=== PATIENT | male | born 2000 | race Caucasian/White ===

== ENCOUNTER 2022-10-10 08:06 | Emergency (ER) | payer BC, SELFPAY ==
[2022-10-10 08:20] VITALS: BP 138/77; PULSE 118; RESP 21; TEMP 36.8; O2SAT 99; BMI 25.4
--- NOTE | 2022-10-10 08:32 | EXP.UTC ---
Discharge Plan Disposition Patient Disposition: Home, Self-Care Condition: Good Prescriptions Prescriptions: New azithromycin [Zithromax Z-Jamie] 250 mg tablet See Rx Instructions .ROUTE .COMPLEX 5 Days Qty: 6 0RF Rx Instructions: For 250 mg dose pack: take 500 mg today (day 1), then 250 mg for 4 days (days 2-5) methylprednisolone [Medrol (Jamie)] 4 mg tablets,dose pack See Rx Instructions .Route .COMPLEX 6 Days Qty: 21 0RF Rx Instructions: taper pack; No Action venlafaxine 150 mg capsule,extended release 24hr 150 mg PO DAILY Label Comments: TAKE 1 CAPSULE BY MOUTH ONCE DAILY . APPOINTMENT REQUIRED FOR FUTURE REFILLS Referrals Follow up/Referrals: Provider,Referral, MD [Primary Care Provider] - See instructions Activity Restrictions/Add. Instructions Additional Instructions/Restrictions: *Monitor Temp, Over the counter Motrin or Tylenol as directed/as needed Tylenol every 4 hours and Motrin every 6 hours (as long as your family doctor has told you that you can take it) for fever or pain. and straight to ER if unable to lower temp less than 101.0 after medication given *Warm salt water gargles may help to soothe the throat *Throat Lozenges? *Warm fluids like tea with honey may help to soothe the throat? *Sleep elevated *Humidifier/Vaporizer Your throat swab was sent for culture. Those results are typically sent to your primary care. Be sure to follow up in 2-3 days with your family doctor/primary care physician if no improvement so they can review those result and treat if necessary. If you don?t have a primary care doctor, I recommend you get one but in the mean time, you will have to return to a walk in clinic Follow up IMMEDIATELY for new or worsening symptoms or no Noticeable improvement over the next 48-72 hours. 911 for difficulty breathing or swallowing Clinical Impressions Clinical Impression: Pharyngitis Stand Alone Forms Stand Alone Forms: Work/School Release Instructions Patient Instructions: Sore Throat, DI for Sinusitis Discharge ED Provider: Bing Farnsworth [facility] General Stated complaint: Drainage, congestion, headache, sore throat Time Seen by Provider: 10/10/22 08:32 History of Present Illness Provider Complaint: Patient states that he has been having sinus pain and pressure, sore throat, headache, and drainage in the back of his throat States today he was feeling worse so he came in to get checked for strep throat Related Data Home Medications Medication Instructions Recorded Confirmed venlafaxine 150 mg 150 mg PO DAILY Anxiety 10/10/22 10/10/22 capsule,extended release 24 hr Previous Rx's Medication Instructions Recorded azithromycin 250 mg tablet See Rx Instructions PO .COMPLEX 5 10/10/22 (Zithromax Z-Jamie) days #6 tabs methylprednisolone 4 mg tablets in See Rx Instructions .Route 10/10/22 a dose pack (Medrol (Jamie)) .COMPLEX 6 days #21 tabs Allergies Allergy/AdvReac Type Severity Reaction Status Date / Time No Known Allergies Allergy Verified 10/10/22 08:34 [facility] Disclaimer: The information contained in this section may have been updated after the patient was seen, as this information can be updated by other users. Social History Smoking Status: Unknown if ever smoked alcohol intake: never current occupational status: employed Travel in the last 8 weeks: None ROS Obtained: Yes All systems reviewed & no additional complaints except as documented and Yes Systems reviewed as appropriate & no additional complaints except as documented Constitutional Constitutional: Reports system reviewed and no additional complaints, except as documented, Reports as per HPI and Reports headache(s) ENT Ears, Nose, Mouth, and Throat: Reports system reviewed and no additional complaints, except as documented, Reports as per HPI, Reports headache(s), Reports nasal congestion, Reports sinus pressure and Rep
[2022-10-10 08:39] LABS: UTC Strep Screen (Rapid) Negative (Negative)
[2022-10-10 08:45] VITALS: BP 138/77; PULSE 118; RESP 21; TEMP 36.8; O2SAT 99
== END 2022-10-10 08:48 | disposition home or self-care (01) ==
PROVIDERS: Emergency Provider Nurse Practitioner
DX: J02.9 Acute pharyngitis, unspecified (principal); R51.9 Headache, unspecified; J34.89 Other specified disorders of nose and nasal sinuses
CPT/HCPCS: 87880; 99204; 99212; G0463

== ENCOUNTER 2023-02-12 08:16 | Emergency (ER) | payer BC, SELFPAY ==
[2023-02-12 08:20] VITALS: BP 138/96; PULSE 115; RESP 22; TEMP 36.9; O2SAT 99; BMI 23.2
[2023-02-12 08:45] LABS: UTC Strep Screen (Rapid) Positive (Negative)
[2023-02-12 08:46] VITALS: BP 138/96; PULSE 115; RESP 22; TEMP 36.9; O2SAT 99
--- NOTE | 2023-02-12 08:46 | EXP.UTC ---
Discharge Plan Disposition Patient Disposition: Home, Self-Care Condition: Good Prescriptions Prescriptions: New penicillin V potassium 500 mg tablet 500 mg PO BID Qty: 20 0RF methylprednisolone [Medrol (Jamie)] 4 mg tablets,dose pack See Rx Instructions .Route .COMPLEX 6 Days Qty: 21 0RF Rx Instructions: taper pack; No Action venlafaxine 150 mg capsule,extended release 24hr 150 mg PO DAILY Patient Comments: TAKE 1 CAPSULE BY MOUTH ONCE DAILY . APPOINTMENT REQUIRED FOR FUTURE REFILLS Referrals Follow up/Referrals: Carol Alonzo [Primary Care Provider] - See instructions Activity Restrictions/Add. Instructions Additional Instructions/Restrictions: *Monitor Temp, Over the counter Motrin or Tylenol as directed/as needed Tylenol every 4 hours and Motrin every 6 hours (as long as your family doctor has told you that you can take it) for fever or pain. and straight to ER if unable to lower temp less than 101.0 after medication given *Warm salt water gargles may help to soothe the throat *Throat Lozenges? *Warm fluids like tea with honey may help to soothe the throat? *Sleep elevated *Humidifier/Vaporizer *If you did not take Penicillin shot or was unable to, start taking antibiotic immediately and make sure that you take it for the FULL length of time although you should start to feel better in 24-48 hours *change toothbrush and toothpaste 24-48 hours after starting to take antibiotics so you do not reinfect yourself Monitor Temp. Tylenol and/or Ibuprofen as needed. ER if fever is no less than 101 despite alternating Tylenol and Ibuprofen * Encourage fluids, water, Gatorade, powerade, pedialyte if /toddler/or child *Cold fluids, popsicles and ice cream may feel good on his throat Follow up IMMEDIATELY for new or worsening symptoms or no Noticeable improvement over the next 48-72 hours. 911 for difficulty breathing or swallowing Clinical Impressions Clinical Impression: Strep throat Stand Alone Forms Stand Alone Forms: Work/School Release Instructions Patient Instructions: DI for Strep Throat, Strep Throat Discharge ED Provider: Bing Farnsworth [facility] General Stated complaint: sore throat Mode of Arrival: Ambulatory Source of Information: Patient Limitations: No Limitations Time Seen by Provider: 02/12/23 08:46 Description of Symptoms (Recalled from Triage Doc. by RN): PATIENT C/O FEVER AND SORE THROAT THAT STARTED SUNDAY NIGHT HEENT Symptoms (Recalled from RN notes): Yes Resp Symptoms (Recalled from RN notes): No Skin Symptoms (Recalled from RN notes): No MS Symptoms (Recalled from RN notes): No Functional Status (Recalled from RN notes): WNL History of Present Illness Provider Complaint: Patient states that he started feeling ill on Sunday States he started with sore throat, headache, fever, and chills States that the fever and sore throat has continued and today his throat was hurting worse so he came in Related Data Home Medications Medication Instructions Recorded Confirmed venlafaxine 150 mg 150 mg PO DAILY Anxiety 10/10/22 02/12/23 capsule,extended release 24 hr Previous Rx's Medication Instructions Recorded methylprednisolone 4 mg tablets in See Rx Instructions .Route 02/12/23 a dose pack (Medrol (Jamie)) .COMPLEX 6 days #21 tabs penicillin V potassium 500 mg 500 mg PO BID #20 tabs 02/12/23 tablet Allergies Allergy/AdvReac Type Severity Reaction Status Date / Time No Known Allergies Allergy Verified 10/10/22 08:34 Worker's Comp Is this a Worker's Comp case?: No [facility] Disclaimer: The information contained in this section may have been updated after the patient was seen, as this information can be updated by other users. Medical History (Updated 02/12/23 @ 08:56 by Bing Farnsworth APRN) Anxiety Hydrocephalus Social History (Updated 10/10/22 @ 08:44 by Bing Farnsworth APRN)
== END 2023-02-12 09:02 | disposition home or self-care (01) ==
PROVIDERS: Emergency Provider Nurse Practitioner; PCP Emergency Medicine
DX: J02.0 Streptococcal pharyngitis (principal); R51.9 Headache, unspecified; R50.9 Fever, unspecified; F41.9 Anxiety disorder, unspecified
CPT/HCPCS: 87880; 99212; 99214; G0463